=== PATIENT | male | born 1990 | race African-American/Black ===

== ENCOUNTER 2020-03-31 11:33 | Emergency (ER) | payer OTHER, SELFPAY ==
[~2020-03-31] VITALS: Ht 182.9 cm; Wt 113.4 kg
[2020-03-31 11:40] VITALS: BP 150/96
[2020-03-31] MEDS ORDERED: ZOFRAN ODT SL STA (11:43)
[2020-03-31 11:44] VITALS: BP 150/96
[2020-03-31] MEDS ORDERED: ZOFRAN ODT ONE (11:44)
--- NOTE | 2020-03-31 11:51 | ER.PDOC ---
General Chief Complaint: General Complaint Stated Complaint: DIZZINES Time seen by MD: 11:44 Source: patient Exam Limitations: no limitations History of Present Illness Initial Comments Patient lost his sense of smell 5 days ago. He has had a mild headache, no fever. Today he took a PCN tab he had at home on an empty stomach which caused him to vomit. Now he feels "dizzy". Timing/Duration: gradual Severity: mild, moderate Associated Symptoms: sinus pain/drainage, headache Worsen By: deep breathing Allergies: Coded Allergies: No Known Allergies (Unverified , 03/31/20) Constitutional: malaise EENTM: nose congestion, other (lost sense of smell 5 days ago) Respiratory: denies no symptoms reported, denies see HPI, denies cough, denies orthopnea, denies shortness of breath, denies SOB with exertion, denies SOB at rest, denies stridor, denies wheezing, denies other Cardiovascular: denies no symptoms reported, denies see HPI, denies chest pain, denies edema, denies irregular heart rate, denies lightheadedness, denies palpitations, denies syncope, denies other Gastrointestinal: nausea, vomiting Genitourinary: denies no symptoms reported, denies see HPI, denies burning, denies dysuria, denies discharge, denies frequency, denies flank pain, denies hematuria, denies incontinence, denies pain, denies urgency, denies other Musculoskeletal: denies no symptoms reported, denies see HPI, denies back pain, denies gout, denies joint pain, denies joint swelling, denies muscle pain, denie s muscle stiffness, denies neck pain, denies other Skin: denies no symptoms reported, denies see HPI, denies change in color, denies change in hair/nails, denies dryness, denies lesions, denies lumps, denies rash, denies other Psychiatric/Neurological: denies no symptoms reported, denies see HPI, denies anxiety, denies depressed, denies emotional problems, denies headache, denies numbness, denies paresthesia, denies pre-existing deficit, denies seizure, denies tingling, denies tremors, denies weakness, denies other Endocrine: denies no symptoms reported, denies see HPI, denies excessive sweating, denies flushing, denies intolerance to cold, denies intolerance to heat, denies increased hunger, denies increased thrist, denies increased urine, denies unexplained weight gain, denies unexplaned weight loss, denies other All Other Systems: Reviewed and Negative Past Medical History Medical History: no pertinent history Surgical History: no surgical history Family History Significant Family History: no pertinent family hx Social History Smoking: cigarettes Alcohol Use: none Drug Use: none Physical Exam General Appearance: alert, no distress Eye: eyes nml inspection, lids & conjunct. nml, PERRL, no nystagmus Nose: nose nml Throat: pharyngeal erythema, tonsillar edudate Neck: nml inspection, supple Respiratory: no resp.distress, breath sounds nml Abdomen: non-tender, no organomegaly CVS: reg rate & rhythm, heart sounds nml Skin: color nml, no rash, warm/dry Extremities: non-tender, nml ROM, no pedal edema NEURO/PSYCH: oriented x 3, motor nml Results/Orders Results/Orders Orders - ISMAEL ESTRADA DO Influenza A&B (03/31/20 11:43) Covid19 Antigen Marie Gini (03/31/20 11:43) Strep Screen (03/31/20 11:43) Ondansetron (Zofran Odt) (03/31/20 11:43) Ondansetron (Zofran Odt) (03/31/20 11:44) Vital Signs Date Time Temp Pulse Resp B/P (MAP) Pulse Ox O2 Delivery O2 Flow Rate FiO2 03/31/20 11:44 98.5 59 20 150/96 (114) 99 Room Air 03/31/20 11:40 98.5 59 20 99 03/31/20 11:40 98.5 59 20 Administered Medications Medications (Trade) Dose Ordered Sig/Chasity Route PRN Reason Start Time Stop Time Status Last Admin Dose Admin Ondansetron HCl (Zofran Odt) 4 mg STAT STAT SL 03/31/20 11:43 03/31/20 11:44 DC 03/31/20 11:53 4 MG Laboratory Tests Test 03/31/20 11:45 Influenza Type A Antigen NEGATIVE (NEG) Influenza B Immunofluorescence NEGATIVE (NEG) Group A Streptococcus Screen NEGATIVE (NEGATIVE) Progress Progress flu/strep/covid negative ER DEPART Departure Time of Disposition: 12:20 Disposition: 01 HOME, SELF-CARE Impression: Primary Impression: Viral syndrome Condition: Stable Patient Instructions: Viral Syndrome Referrals: PCP,UNKNOWN (PCP) PRIMARY CARE PROVIDER Additional Instructions: Return to ER if you experience any difficulty breathing or swallowing, or for any emergent concerns. Alternate Tylenol and Motrin per package instructions every 4 hours as needed for fever or body aches including headache. Follow up with your doctor next week for reevaluation. Duration or Time Spent with Pa: 15 min ISMAEL ESTRADA DO Mar 31, 2020 11:51
[2020-03-31 12:35] VITALS: BP 136/74
== END 2020-03-31 12:35 | disposition home or self-care (01) ==
LOC: ER 11:33
DX: B34.9 Viral infection, unspecified (principal); F17.210 Nicotine dependence, cigarettes, uncomplicated; Z20.828 Contact with and (suspected) exposure to other viral communicable diseases
CPT/HCPCS: 36415; 87070; 87426; 87804; 87880; 99283